=== PATIENT | male | born 1995 | race Caucasian/White ===

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

== ENCOUNTER 2017-02-08 18:30 | Emergency (ER) | payer OTHER ==
[~2017-02-08] VITALS: Ht 177.8 cm; Wt 157.3 kg
[~2017-02-08 18:30] MED LIST: ALBU8.5H3 INH; AZIT250T94 PO; CETI10CA PO; PRED20TA PO
[2017-02-08 18:58] VITALS: Ht 177.8 cm; Wt 157.3 kg
[2017-02-08] MEDS ORDERED: ALBUTEROL 0.083% (NEB) 2.5 MG/3 ML AMP HHN STA (19:29)
[2017-02-08] MEDS ORDERED: predniSONE 20 MG TAB PO ONE (19:30)
[2017-02-08] MEDS ORDERED: PRED20TA PO (20:25)
[2017-02-08] MEDS ORDERED: ALBU8.5H3 INH (20:25)
--- NOTE | 2017-02-08 20:32 | ERD ---
ER Documentation Chief Complaint Chief Complaint wheezes run out of puffs HPI This 21-year-old male presents with wheezing for the last 3 days. Denies any URI symptoms. He gets wheezing intermittently and changes in weather possibly URIs. Denies any chest pain, fevers, productive mucus, vomiting, abdominal pain. ROS All systems reviewed and are negative except as per history of present illness. Medications Home Meds Active Scripts Albuterol Sulfate* (Proair HFA*) 8.5 Gm Hfa.aer.ad, 2 PUFF INH Q4, #1 INHALER Prov:BRADLEY CHI MD 02/08/17 Prednisone* (Prednisone*) 20 Mg Tab, 60 MG PO DAILY for 4 Days, TAB Start February 09, 2017 Prov:BRADLEY CHI MD 02/08/17 Albuterol Sulfate* (Proair HFA*) 8.5 Gm Hfa.aer.ad, 2 PUFF INH Q4, #1 INHALER Prov:BERENICE HERNANDEZ PA-C 04/10/16 Prednisone* (Prednisone*) 20 Mg Tab, 40 MG PO DAILY for 4 Days, TAB Prov:BERENICE HERNANDEZ PA-C 04/10/16 Prednisone* (Prednisone*) 20 Mg Tab, 40 MG PO DAILY for 4 Days, TAB Prov:VIJAYA RENTERIA PA-C 01/27/16 Cetirizine Hcl* (Zyrtec*) 10 Mg Capsule, 10 MG PO DAILY, #14 TAB.CHEW Prov:VIJAYA RENTERIA PA-C 01/27/16 Albuterol Sulfate* (Proair HFA*) 8.5 Gm Hfa.aer.ad, 2 PUFF INH Q4, #1 INHALER Prov:VIJAYA RENTERIA PA-C 01/27/16 Azithromycin* (Zithromax*) 250 Mg Tablet, 250 MG PO .SMILEY DIRECTED, #6 TAB TAKE 500 MG (2 TABS) THE FIRST DAY THEN 250 MG (1 TAB) DAYS 2-5 Prov:VIJAYA RENTERIA PA-C 01/27/16 Allergies Allergies: Coded Allergies: No Known Allergy (Unverified , 01/27/16) PMhx/Soc Medical and Surgical Hx: pt denies Surgical Hx Hx Miscellaneous Medical Probl: Yes (Bronchitis) Hx Alcohol Use: No Hx Substance Use: No Hx Tobacco Use: No Smoking Status: Never smoker Physical Exam Vitals Vital Signs Date Time Temp Pulse Resp B/P Pulse Ox O2 Delivery O2 Flow Rate FiO2 02/08/17 19:53 92 20 94 21 02/08/17 18:58 98.2 101 20 135/87 96 Physical Exam Const: [] Alert, [id number]. Head: Atraumatic Eyes: Normal Conjunctiva ENT: Normal External Ears, Nose and Mouth. Neck: Full range of motion..~ No meningismus. Resp: Clear to auscultation bilaterally. Wheezing diffusely without rales or retractions. Cardio: Regular rate and rhythm, no murmurs Abd: Soft, non tender, non distended. Normal bowel sounds Skin: No petechiae or rashes Back: No midline or flank tenderness Ext: No cyanosis, or edema Neur: Awake and alert Psych: Normal Mood and Affect Results 24 hrs Current Medications Medications (Trade) Dose Ordered Sig/Dora Route PRN Reason Start Time Stop Time Status Last Admin Dose Admin Prednisone (Prednisone) 60 mg ONCE ONCE PO 02/08/17 19:30 02/08/17 19:34 DC 02/08/17 19:42 Albuterol (Proventil 0.083% (Neb)) 5 mg ONCE STAT HHN 02/08/17 19:29 02/08/17 19:34 DC 02/08/17 19:52 Procedures/MDM Patient was given prednisone 60 mg by mouth and albuterol treatment. Resolution of wheezing after observation treatment. Patient presents with wheezing for 3 days signs of hypoxemia or respiratory distress. He has a mild intermittent asthma exacerbation uncomplicated. We will treat with a short course of prednisone and refills of ProAir air. The patient was stable with no new complaints during the ER course. Clinically, there is no current evidence to suggest meningitis, sepsis, acute abdomen, pneumonia, acute coronary syndrome , pulmonary embolism, or any other emergent condition appearing to require further evaluation or hospitalization. The patient should certainly return for any new or worsening symptoms per the aftercare instructions. They should otherwise follow-up with her primary care doctor for reevaluation this week. Departure Diagnosis: Primary Impression: Wheezing Condition: Stable Patient Instructions: Asthma, Acute (Adult) Additional Instructions: Recheck for new or worsening symptoms or primary care doctor. BRADLEY CHI MD Feb 08, 2017 20:32
== END 2017-02-08 20:40 | disposition home or self-care (01) ==
LOC: FTE 18:30
DX: R06.2 Wheezing (principal)
CPT/HCPCS: 94664; J7512; Z7502; Z7610